=== PATIENT | male | born 1950 | race Caucasian/White ===

== ENCOUNTER 2025-10-24 12:46 | Emergency (ER) | payer OTHER ==
[~2025-10-24] VITALS: Ht 182.9 cm; Wt 111.1 kg
[2025-10-24 13:18] VITALS: BP 161/79
== END 2025-10-24 16:02 | disposition home or self-care (01) ==
LOC: ER 12:46
DX: S92.322A Displaced fracture of second metatarsal bone, left foot, initial encounter for closed fracture (principal); S92.332A Displaced fracture of third metatarsal bone, left foot, initial encounter for closed fracture; S92.342A Displaced fracture of fourth metatarsal bone, left foot, initial encounter for closed fracture; W19.XXXA Unspecified fall, initial encounter
CPT/HCPCS: 29515; 73610; 73630; 99283-25